=== PATIENT | male | born 1995 | race African-American/Black ===

== ENCOUNTER 2022-08-12 19:05 | Emergency (ER) | payer SELFPAY ==
--- NOTE | ~2022-08-12 | XR_ITS ---
EXAMINATION: XR chest 2V DATE: 08/12/2022 21:42 INDICATION: Cough and shortness of breath TECHNIQUE: PA and lateral views of the chest were obtained. COMPARISON: None FINDINGS: The lungs are clear with no focal airspace opacities, pulmonary edema, pleural effusion or pneumothor ax. The cardiomediastinal silhouette is normal. Visualized bones and soft tissues are unremarkable. IMPRESSION: 1. No acute cardiopulmonary disease. Reviewed, dictated and finalized at location A.
[2022-08-12 19:07] VITALS: BP 159/78; PULSE 93; RESP 22; TEMP 36.6; O2SAT 100
[2022-08-12 19:20] VITALS: O2SAT 98
--- NOTE | 2022-08-12 19:22 | ED.GENADULT ---
HPI - General Adult General Chief complaint: Asthma Stated complaint: sob, asthma Time Seen by Provider: 08/12/22 19:15 History of Present Illness HPI narrative: This is a 26-year-old male with history of asthma presenting to ED with difficulty breathing. Patient says that 20 minutes ago he started to experience wheezing and shortness of breath. The patient has been out of his albuterol and nebulizer inhalers for quite some time. He denies any other complaints such as fever, chills, chest pain, URI symptoms, lower extremity edema. Patient states that he has some wheezing but it is always cured with albuterol inhaler. He uses the ER approximately 1 time per year. He has never been intubated before. Related Data Allergies Allergy/AdvReac Type Severity Reaction Status Date / Time No Known Allergies Allergy Verified 08/12/22 19:09 Review of Systems Review of Systems: CONSTITUTIONAL: Denies night sweats. EYES: No eye pain ENT: Denies rhinorrhea CARDIOVASCULAR: Denies palpitations RESPIRATORY: Denies hemoptysis GASTROINTESTINAL: Denies hematemesis GENITOURINARY: Denies hematuria. SKIN: Denies rash MUSCULOSKELETAL: Denies myalgia. NEUROLOGIC: Denies weakness. PSYCHIATRIC: Denies delusions [facility] Surgical History Surgical History History of appendectomy [place] teeth removed Exam Narrative: APPEARANCE: Appears uncomfortable Head atraumatic. EYES: PERRLA/EOMI, NOSE: Normal no drainage NECK: Supple, Trachea midline RESPIRATORY: Patient has expiratory wheezing in all garcia. He is speaking in full sentences. He is not using accessory muscles to breathe. CARDIOVASCULAR: S1S2 appreciated ABDOMINAL: Soft, nontender, nondistended, MUSCULOSKELETAl: No obvious deformities NEURO: Alert. Moving 4/4 extremities SKIN:: Warm, dry. Normal color PSYCHIATRIC: Normal affect Course Vital Signs Vital signs: Vital Signs Temperature 97.9 F 08/12/22 19:07 Pulse Rate 93 08/12/22 19:07 Respiratory Rate 22 H 08/12/22 19:07 Blood Pressure 159/78 H 08/12/22 19:07 Pulse Oximetry 100 08/12/22 19:07 Oxygen Delivery Room Air 08/12/22 19:07 Temperature 97.9 F 08/12/22 19:07 Pulse Rate 87 08/12/22 20:16 Respiratory Rate 20 08/12/22 20:16 Blood Pressure 150/77 H 08/12/22 20:16 Pulse Oximetry 100 08/12/22 20:16 Oxygen Delivery Room Air 08/12/22 19:20 Medical Decision Making MDM Narrative Medical decision making narrative: This is a 26-year-old male presenting ED with shortness of breath. His history and physical are consistent with asthma. Patient will be given an hour long DuoNeb treatment with magnesium and Solu-Medrol the IV. Upon re-evaluation the patient says that he is feeling better. He does state that he has had URI symptoms lately. A COVID swab and chest x-ray were obtained. COVID was negative. My interpretation the x-ray was negative for any acute cardiopulmonary process. This time patient is breathing comfortably. He will be discharged home. He has been given prescription for albuterol. Vital Signs Vital Signs: Vital Signs Temperature 97.9 F 08/12/22 19:07 Pulse Rate 93 08/12/22 19:07 Respiratory Rate 22 H 08/12/22 19:07 Blood Pressure 159/78 H 08/12/22 19:07 Pulse Oximetry 100 08/12/22 19:07 Oxygen Delivery Room Air 08/12/22 19:07 Temperature 97.9 F 08/12/22 19:07 Pulse Rate 87 08/12/22 20:16 Respiratory Rate 20 08/12/22 20:16 Blood Pressure 150/77 H 08/12/22 20:16 Pulse Oximetry 100 08/12/22 20:16 Oxygen Delivery Room Air 08/12/22 19:20 Lab Data Labs: Lab Results 08/12/22 Range/Units 21:34 SARS-CoV-2 RNA (RT-PCR) Negative Discharge Plan Discharge Clinical Impression: Asthma, URI (upper respiratory infection) Patient Disposition: Home, Self-Care Condition: Stable Instructions: Antibiotic Form, Asthma (ED) Additional I
[2022-08-12] MEDS: IPRATROPIUM BR 0.02% INH SOLN 0.5 MG/2.5 ML VIAL 1.5 MG INHALATION (19:23)
[2022-08-12] MEDS: ALBUTEROL SULFATE NEB 2.5 MG/3 ML INH 15 MG INHALATION (19:23)
[2022-08-12 19:26] VITALS: O2SAT 98
[2022-08-12] MEDS: methylPREDNISolone SOD SUCC 125 MG VIAL IV PUSH (20:13)
[2022-08-12] MEDS: MAGNESIUM SULF 2 GM/WATER 50ML 2 GM/50 ML BAG IVPB (20:15)
[2022-08-12 20:16] VITALS: BP 150/77; PULSE 87; RESP 20; O2SAT 100
[2022-08-12 22:29] LABS: SARS-CoV-2 RNA PCR Negative
[2022-08-12 22:45] VITALS: PULSE 106; RESP 20; O2SAT 97
== END 2022-08-12 22:50 | disposition home or self-care (01) ==
PROVIDERS: Emergency Provider Emergency Medicine
DX: J45.909 Unspecified asthma, uncomplicated (principal); J06.9 Acute upper respiratory infection, unspecified; Z20.822 Contact with and (suspected) exposure to COVID-19
CPT/HCPCS: 71046; 94640; 96365; 96375; 99284; C9803; J2930; J3475; U0003; U0005